=== PATIENT | female | born 1965 | race Caucasian/White ===

== ENCOUNTER 2017-08-26 23:08 | Observation (INO) | payer OTHER ==
[2017-08-27] MEDS: SODIUM CHLORIDE 1,000 ML IV SCH (00:36)
[2017-08-27 00:40] LABS: BASO # 0.1 # (0.1-1); BASO % 0.9 % (0-2.0); EOS # 0.2 # (0-4.5); LYMPH # 2.1 (8-40); MCH 31.3 pg (25.7-33.7); MCHC 33.9 g/dl (32.0-36.0); MEAN CELL VOLUME 92.4 fl (80-96); MEAN PLT VOLUME 9.6 fl (7.5-11.1); MONO # 0.4 # (3.8-10.2); NEUT % 50.9 % (42.8-82.8); PLATELET COUNT 216 K/MM3 (134-434); RDW 12.9 % (11.6-15.6); WHITE BLOOD COUNT 5.8 K/mm3 (4.0-10.0)
[2017-08-27 00:43] LABS: URINE APPEARANCE CLEAR; URINE BILIRUBIN NEGATIVE (NEGATIVE); URINE BLOOD NEGATIVE (NEGATIVE); URINE COLOR COLORLESS; URINE GLUCOSE (UA) NEGATIVE (NEGATIVE); URINE KETONE NEGATIVE (NEGATIVE); URINE LEUK ESTERASE NEGATIVE (NEGATIVE); URINE NITRITE NEGATIVE (NEGATIVE); URINE PROTEIN NEGATIVE (NEGATIVE); URINE UROBILINOGEN NEGATIVE mg/dL (0.2-1.0)
--- NOTE | 2017-08-27 00:44 | PDOC ---
History of Present Illness <Bita Mtzian - Last Filed: 08/27/17 02:08> - History of Present Illness Initial Comments: 08/27/17 00:39 52 F with no PMH presents to ER with R side numbness x 2 days, as well as fall today. Pt states that she awoke on Sunday with numbness to her R arm, R leg, and R face. Denies any weakness. Denies headache. Denies dizziness. She did not think anything of it at the time because she thought it was a pinched nerve. However, today pt states that she tripped and fell because her R side was numb. She reports falling and hitting her head on the stairwell. Denies LOC. Denies any neck pain. Denies any new numbness or weakness after the fall. Was able to get up and ambulate immediately afterwards. Pt denies CP/SOB. Denies F/C. Denies N/V/D. Denies FH of stroke. Was former smoker for 30 years. Endorses occasional ETOH. No other illicits. <Willard Melo - Last Filed: 08/27/17 04:15> - General Chief Complaint: Injury Stated Complaint: FALL Time Seen by Provider: 08/26/17 23:57 NIH Stroke Scale - Last Known Well Date/Time & Onset Date Last Known Well: 08/24/17 Time Last Known Well: 22:00 - Initial Evaluation Level of consciousness: Alert Ask patient the month and their age: Answers both correctly Ask patient to open & close eyes; make fist and let go: Obeys both correctly Best gaze (horizontal eye movement): Normal Visual field testing: No visual field loss Facial paresis (Show teeth/raise eyebrows/close eyes tight): Normal symmetrical movement Motor Function: Left Arm: Normal Motor Function: Right Arm: Normal (extends arm 90 (or 45) degrees for 10 seconds without drift Motor Function: Left Leg: Normal (extends leg 30 degrees for 5 seconds without drift) Motor Function: Right Leg: Normal (extends leg 30 degrees for 5 seconds without drift) Limb Ataxia: No ataxia Sensory(Use pinprick test arms,legs,trunk,face/side to side): Mild to moderate decrease in sensation Best language (Describe picture, name items, read sentences): No Aphasia Dysarthria (read several words): Normal articulation Extinction and Inattention: No abnormality - Total Score NIH Stroke Scale Score: 1 <Willard Melo - Last Filed: 08/27/17 04:15> Past History <Stefan Mtz - Last Filed: 08/27/17 02:08> - Suicide/Smoking/Psychosocial Hx Smoking History: Never smoked Have you smoked in the past 12 months: No Information on smoking cessation initiated: No Hx Alcohol Use: No Drug/Substance Use Hx: No <Willard Melo - Last Filed: 08/27/17 04:15> - Past Medical History Allergies/Adverse Reactions: Allergies Allergy/AdvReac Type Severity Reaction Status Date / Time No Known Allergies Allergy Verified 08/26/17 23:52 Home Medications: Ambulatory Orders NK [No Known Home Medication] 08/26/17 Review of Systems - Review of Systems Comments:: 08/27/17 00:41 "GENERAL/CONSTITUTIONAL: No fever or chills. No weakness. HEAD, EYES, EARS, NOSE AND THROAT: +head lac, No change in vision. No ear pain or discharge. No sore throat. CARDIOVASCULAR: No chest pain or shortness of breath. RESPIRATORY: No cough, wheezing, or hemoptysis. GASTROINTESTINAL: No nausea, vomiting, diarrhea or constipation. GENITOURINARY: No dysuria, frequency, or change in urination. MUSCULOSKELETAL: No joint or muscle swelling or pain. No neck or back pain. SKIN: No rash NEUROLOGIC: + R side numbness, No headache, vertigo, loss of consciousness, or change in strength ENDOCRINE: No increased thirst. No abnormal weight change. HEMATOLOGIC/LYMPHATIC: No anemia, easy bleeding, or history of blood clots. ALLERGIC/IMMUNOLOGIC: No hives or skin allergy. " <Willard Melo - Last Filed: 08/27/17 04:15> *Physical Exam - Vital Signs Last Vital Signs Temp Pulse Resp BP Pulse Ox 98.6 F 107 H 19 171/99 98 08/26/17 23:49 08/26/17 23:49 08/26/17 23:49 08/26/17 23:49 08/26/17 23:49 <Stefan Mtz - Last Filed: 08/27/17 02:08> - Vital Signs Last Vital Signs Temp Pulse Resp BP Pulse Ox 98.6 F 107 H 19 171/99 98 08/26/17 23:49 08/26/17 23:49 08/26/17 23:49 08/26/17 23:49 08/26/17 23:49 - Physical Exam Comments: 08/27/17 00:42 "GENERAL: Awake, alert, and fully oriented, in no acute distress HEAD: 2cm shallow occipital lac EYES: PERRLA, EOMI, sclera anicteric, conjunctiva clear ENT: Auricles normal inspection, hearing grossly normal, nares patent, oropharynx clear without exudates. Moist mucosa NECK: Nontender, no stepoffs, Normal ROM, supple, no lymphadenopathy, JVD, or masses LUNGS: Breath sounds equal, clear to auscultation bilaterally. No wheezes, and no crackles HEART: Regular rate and rhythm, normal S1 and S2, no murmurs, rubs or gallops ABDOMEN: Soft, nontender, normoactive bowel sounds. No guarding, no rebound. No masses EXTREMITIES: Normal range of motion, no edema. No clubbing or cyanosis. No cords, erythema, or tenderness NEUROLOGICAL: Diminished sensation to R face, R arm, R leg, Cranial nerves II through XII intact. 5/5 strength in all extremities, Normal speech, normal gait SKIN: Warm, Dry, normal turgor, no rashes or lesions noted. " <,Willard - Last Filed: 08/27/17 04:15> Procedures - Laceration/Wound Repair Posterior Head Wound Length: to 2.5 cm Wound Explored: clean Wound's Depth, Shape: superficial, linear Irrigated w/ Saline: Yes Anesthesia: 1% Lidocaine Suture Size/Type: 3:0 Number of Sutures: 2 <,Willard - Last Filed: 08/27/17 04:15> Heart Score/ECG Review - ECG Impressions Comment:: 08/27/17 01:34 NSR, no JANEEN/STDs, TWI in leads inferolateral leads (II, aVF, I, aVL, V4-V6), axis wnl, QTc 479 <,Willard - Last Filed: 08/27/17 04:15> ED Treatment Course - LABORATORY CBC & Chemistry Diagram: 08/27/17 00:30 08/27/17 00:30 - ADDITIONAL ORDERS Additional order review: Laboratory Results 08/27/17 08/27/17 08/27/17 00:30 00:30 00:30 PT with INR INR Sodium 142 Potassium 3.8 Chloride 108 H Carbon Dioxide 23 Anion Gap 11 BUN 18 Creatinine 0.9 Creat Clearance w eGFR > 60 Random Glucose 195 H Calcium 8.8 Total Bilirubin 0.2 AST 26 ALT 38 Alkaline Phosphatase 88 Creatine Kinase 186 Creatine Kinase Index 1.5 CK-MB (CK-2) 2.856 Troponin I < 0.02 Total Protein 7.6 Albumin 4.1 Triglycerides 297 H Cholesterol 308 H Total LDL Cholesterol 165 H HDL Cholesterol 84 Serum , Qual Negative Urine Color Urine Appearance Urine pH Ur Specific [place] Urine Protein Urine Glucose (UA) Urine Ketones Urine Blood Urine Nitrite Urine Bilirubin Urine Urobilinogen Blood Type O POSITIVE Antibody Screen Negative 08/27/17 08/27/17 00:30 00:30 PT with INR 10.70 INR 0.95 Sodium Potassium Chloride Carbon Dioxide Anion Gap BUN Creatinine Creat Clearance w eGFR Random Glucose Calcium Total Bilirubin AST ALT Alkaline Phosphatase Creatine Kinase Creatine Kinase Index CK-MB (CK-2) Troponin I Total Protein Albumin Triglycerides Cholesterol Total LDL Cholesterol HDL Cholesterol Serum , Qual Urine Color Colorless Urine Appearance Clear Urine pH 5.0 Ur Specific [place] 1.001 Urine Protein Negative Urine Glucose (UA) Negative Urine Ketones Negative Urine Blood Negative Urine Nitrite Negative Urine Bilirubin Negative Urine Urobilinogen Negative Blood Type Antibody Screen 08/27/17 00:30 RBC 4.50 MCV 92.4 MCHC 33.9 RDW 12.9 MPV 9.6 Neutrophils % 50.9 Lymphocytes % 36.6 Monocytes % 7.6 Eosinophils % 4.0 Basophils % 0.9 - RADIOLOGY Radiograph Interpretation: 08/27/17 02:08 EXAM: CT HEAD without contrast HISTORY: Rule out CVA/TIA COMPARISON: None. FINDINGS: The ventricular system is midline and nondilated. The sulcal pattern is normal for the patient's age. Minimal small vessel ischemic changes are noted. There is no bleed, mass, extra-axial fluid collection or mass effect. No skull fracture or skull lesion is identified. The visualized paranasal sinuses and mastoid air cells are clear. IMPRESSION: No evidence of acute pathology Reported by Yunior Remy MD <Stefan Mtz - Last Filed: 08/27/17 02:08> - LABORATORY CBC & Chemistry Diagram: 08/27/17 00:30 08/27/17 00:30 - RADIOLOGY Radiology Studies Ordered: Category Date Time Status HEAD CT (STROKE) [CT] Stat CT Scan 08/27/17 00:12 Ordered <Willard Melo - Last Filed: 08/27/17 04:15> Medical Decision Making - Medical Decision Making 08/27/17 00:43 52 F with R side numbness x 2 days. Possible CVA, though pt with otherwise normal neuro exam. NIHSS 1. Pt well outside window for tPA at this time. Pt also fell today and has head lac. - CT head - Labs 08/27/17 02:11 CBC,CMP WBC 5.8 K/mm3 (4.0-10.0) 08/27/17 00:30 RBC 4.50 M/mm3 (3.60-5.2) 08/27/17 00:30 Hgb 14.1 GM/dL (10.7-15.3) 08/27/17 00:30 Hct 41.6 % (32.4-45.2) 08/27/17 00:30 MCV 92.4 fl (80-96) 08/27/17 00:30 MCH 31.3 pg (25.7-33.7) 08/27/17 00:30 MCHC 33.9 g/dl (32.0-36.0) 08/27/17 00:30 RDW 12.9 % (11.6-15.6) 08/27/17 00:30 Plt Count 216 K/MM3 (134-434) 08/27/17 00:30 MPV 9.6 fl (7.5-11.1) 08/27/17 00:30 Neutrophils % 50.9 % (42.8-82.8) 08/27/17 00:30 Lymphocytes % 36.6 % (8-40) 08/27/17 00:30 Monocytes % 7.6 % (3.8-10.2) 08/27/17 00:30 Eosinophils % 4.0 % (0-4.5) 08/27/17 00:30 Basophils % 0.9 % (0-2.0) 08/27/17 00:30 Sodium 142 mmol/L (136-145) 08/27/17 00:30 Potassium 3.8 mmol/L (3.5-5.1) 08/27/17 00:30 Chloride 108 mmol/L (98-107) H 08/27/17 00:30 Carbon Dioxide 23 mmol/L (21-32) 08/27/17 00:30 Anion Gap 11 (8-16) 08/27/17 00:30 BUN 18 mg/dL (7-18) 08/27/17 00:30 Creatinine 0.9 mg/dL (0.55-1.02) 08/27/17 00:30 Creat Clearance w eGFR > 60 (>60) 08/27/17 00:30 Random Glucose 195 mg/dL (74-106) H 08/27/17 00:30 Calcium 8.8 mg/dL (8.5-10.1) 08/27/17 00:30 Total Bilirubin 0.2 mg/dL (0.2-1.0) 08/27/17 00:30 AST 26 U/L (15-37) 08/27/17 00:30 ALT 38 U/L (12-78) 08/27/17 00:30 Alkaline Phosphatase 88 U/L (45-117) 08/27/17 00:30 Creatine Kinase 186 IU/L (26-192) 08/27/17 00:30 Creatine Kinase Index 1.5 % (0.0-5.0) 08/27/17 00:30 CK-MB (CK-2) 2.856 ng/mL (0.5-3.6) 08/27/17 00:30 Troponin I < 0.02 ng/ml (0.00-0.05) 08/27/17 00:30 Total Protein 7.6 g/dl (6.4-8.2) 08/27/17 00:30 Albumin 4.1 g/dl (3.4-5.0) 08/27/17 00:30 Triglycerides 297 mg/dL (35-160) H 08/27/17 00:30 Cholesterol 308 mg/dL (50-200) H 08/27/17 00:30 Total LDL Cholesterol 165 mg/dL (5-100) H 08/27/17 00:30 HDL Cholesterol 84 mg/dl (29-89) 08/27/17 00:30 Serum , Qual Negative 08/27/17 00:30 CTH negative for acute bleed Labs wnl. Pt with inferolateral TWIs on EKG but negative trop. Pt likely has undiagnosed cardiovascular disease. Given symptoms of R side numbness, will need work up for stroke. 08/27/17 04:[address] Marie, tele obs. <Willard Melo - Last Filed: 08/27/17 04:15> *DC/Admit/Observation/Transfer - Attestations Scribe Attestion: 08/27/17 02:08 Documentation prepared by Stefan Mtz, acting as director medical economics for Willard Melo MD. <Stefan Mtz - Last Filed: 08/27/17 02:08> - Discharge Dispostion Admit: Yes - Attestations Physician Attestion: 08/27/17 04:15 I, Dr. Willard Melo MD, attest that this document has been prepared under my direction and personally reviewed by me in its entirety. I further attest, that it accurately reflects all work, treatment, procedures and medical decision -making performed by me. <Willard Melo - Last Filed: 08/27/17 04:15> Diagnosis at time of Disposition: Numbness on right side - Discharge Dispostion Condition at time of disposition: Fair - Referrals Referrals: Cee Hughes MD [Primary Care Provider] - - Patient Instructions - Post Discharge Activity
[2017-08-27] MEDS ORDERED: DIPHTH,PERTUSS(ACELL),TET 0.5 ML DISP.SYRIN IM ONE (00:46)
[2017-08-27 01:02] LABS: INR 0.95 (0.82-1.09); PROTHROMBIN TIME (PATIENT) 10.7 SEC (9.98-11.88)
[2017-08-27 01:13] LABS: ALBUMIN 4.1 g/dl (3.4-5.0); ANION GAP 11 (8-16); CALCIUM 8.8 mg/dL (8.5-10.1); CHOLESTEROL 308 mg/dL (50-200); CO2 23 mmol/L (21-32); CREATININE 0.9 mg/dL (0.55-1.02); GLUCOSE,RANDOM 195 mg/dL (74-106); SGOT/AST 26 U/L (15-37); SGPT/ALT 38 U/L (12-78)
[2017-08-27 01:18] LABS: ALK PHOS 88 U/L (45-117); BILIRUBIN,TOTAL 0.2 mg/dL (0.2-1.0); CPK 186 IU/L (26-192); TOT PROT 7.6 g/dl (6.4-8.2); TROPONIN I < 0.02 ng/ml (0.00-0.05)
--- NOTE | 2017-08-27 04:21 | HP ---
CHIEF COMPLAINT: R. Sided Numbness PCP:Dr. Tai HISTORY OF PRESENT ILLNESS: 52 F with no pmhx who presents with right sided numbness. Notes that she had awoken Sunday with Right arm/leg numbness. She states she did not do anything about it because she thought she might have "pinched a nerve", Notes she tripped and fell tonight and hit the back of her head. Did not have any preceding chest pain, pressurem shortness of breath, dizziness or lightheadedness. No N/V/D. No recent fevers or chills. No loss of bowel or bladder function, and no tongue biting. Does note pain were she hit her head, but denies any visual changes. ER course was notable for: (1) CT HEAD- Negative for acute Pathology (2) EKG with TWI in inferolateral leads (3) Posterior head wond repair Recent Travel: NO PAST MEDICAL HISTORY: None PAST SURGICAL HISTORY: Social History: Smoking:No Alcohol: Social Drugs: N/A Family History: Cancer Allergies No Known Allergies Allergy (Verified 08/26/17 23:52) HOME MEDICATIONS: Home Medications Medication Instructions Recorded NK [No Known Home Medication] 08/26/17 REVIEW OF SYSTEMS CONSTITUTIONAL: Absent: fever, chills, diaphoresis, generalized weakness, malaise, loss of appetite, weight change HEENT: Absent: rhinorrhea, nasal congestion, throat pain, throat swelling, difficulty swallowing, mouth swelling, ear pain, eye pain, visual changes CARDIOVASCULAR: Absent: chest pain, syncope, palpitations, irregular heart rate, lightheadedness , peripheral edema RESPIRATORY: Absent: cough, shortness of breath, dyspnea with exertion, orthopnea, wheezing, stridor, hemoptysis GASTROINTESTINAL: Absent: abdominal pain, abdominal distension, nausea, vomiting, diarrhea, constipation, melena, hematochezia GENITOURINARY: Absent: dysuria, frequency, urgency, hesitancy, hematuria, flank pain, genital pain MUSCULOSKELETAL: Absent: myalgia, arthralgia, joint swelling, back pain, neck pain SKIN: Absent: rash, itching, pallor HEMATOLOGIC/IMMUNOLOGIC: Absent: easy bleeding, easy bruising, lymphadenopathy, frequent infections ENDOCRINE: Absent: unexplained weight gain, unexplained weight loss, heat intolerance, cold intolerance NEUROLOGIC: Absent: headache, focal weakness or paresthesias, dizziness, unsteady gait, seizure, mental status changes, bladder or bowel incontinence PSYCHIATRIC: Absent: anxiety, depression, suicidal or homicidal ideation, hallucinations. PHYSICAL EXAMINATION Vital Signs - 24 hr 08/26/17 23:49 Temperature 98.6 F Pulse Rate 107 H Respiratory 19 Rate Blood Pressure 171/99 O2 Sat by Pulse 98 Oximetry (%) GENERAL: Awake, alert, and fully oriented, in no acute distress. HEAD: Normal with no signs of trauma. EYES: Pupils equal, round and reactive to light, extraocular movements intact, sclera anicteric, conjunctiva clear. No lid lag. EARS, NOSE, THROAT: Ears normal, nares patent, oropharynx clear without exudates. Moist mucous membranes. NECK: Normal range of motion, supple without lymphadenopathy, JVD, or masses. LUNGS: Breath sounds equal, clear to auscultation bilaterally. No wheezes, and no crackles. No accessory muscle use. HEART: Regular rate and rhythm, normal S1 and S2 without murmur, rub or gallop. ABDOMEN: Soft, nontender, not distended, normoactive bowel sounds, no guarding, no rebound, no masses. No hepatomegaly or splenomegaly. MUSCULOSKELETAL: Normal range of motion at all joints. No bony deformities or tenderness. No CVA tenderness. UPPER EXTREMITIES: 2+ pulses, warm, well-perfused. No cyanosis. No clubbing. No peripheral edema. LOWER EXTREMITIES: 2+ pulses, warm, well-perfused. No calf tenderness. No peripheral edema. NEUROLOGICAL: Cranial nerves II-XII intact. Normal speech. PSYCHIATRIC: Cooperative. Good eye contact. Appropriate mood and affect. SKIN: Warm, dry, normal turgor, no rashes or lesions noted, normal capillary refill. Laboratory Results - last 24 hr 08/27/17 08/27/17 08/27/17 00:30 00:30 00:30 WBC 5.8 RBC 4.50 Hgb 14.1 Hct 41.6 MCV 92.4 MCH 31.3 MCHC 33.9 RDW 12.9 Plt Count 216 MPV 9.6 Neutrophils % 50.9 Lymphocytes % 36.6 Monocytes % 7.6 Eosinophils % 4.0 Basophils % 0.9 PT with INR 10.70 INR 0.95 Sodium Potassium Chloride Carbon Dioxide Anion Gap BUN Creatinine Creat Clearance w eGFR Random Glucose Calcium Total Bilirubin AST ALT Alkaline Phosphatase Creatine Kinase Creatine Kinase Index CK-MB (CK-2) Troponin I Total Protein Albumin Triglycerides Cholesterol Total LDL Cholesterol HDL Cholesterol Serum , Qual Urine Color Colorless Urine Appearance Clear Urine pH 5.0 Ur Specific [place] 1.001 Urine Protein Negative Urine Glucose (UA) Negative Urine Ketones Negative Urine Blood Negative Urine Nitrite Negative Urine Bilirubin Negative Urine Urobilinogen Negative Blood Type Antibody Screen 08/27/17 08/27/17 08/27/17 00:30 00:30 00:30 WBC RBC Hgb Hct MCV MCH MCHC RDW Plt Count MPV Neutrophils % Lymphocytes % Monocytes % Eosinophils % Basophils % PT with INR INR Sodium 142 Potassium 3.8 Chloride 108 H Carbon Dioxide 23 Anion Gap 11 BUN 18 Creatinine 0.9 Creat Clearance w eGFR > 60 Random Glucose 195 H Calcium 8.8 Total Bilirubin 0.2 AST 26 ALT 38 Alkaline Phosphatase 88 Creatine Kinase 186 Creatine Kinase Index 1.5 CK-MB (CK-2) 2.856 Troponin I < 0.02 Total Protein 7.6 Albumin 4.1 Triglycerides 297 H Cholesterol 308 H Total LDL Cholesterol 165 H HDL Cholesterol 84 Serum , Qual Negative Urine Color Urine Appearance Urine pH Ur Specific [place] Urine Protein Urine Glucose (UA) Urine Ketones Urine Blood Urine Nitrite Urine Bilirubin Urine Urobilinogen Blood Type O POSITIVE Antibody Screen Negative NIHSS:1 CXR- PENDING UA- PENDING CT HEAD- NO Acute Pathology EKG: NSR, no JANEEN/STDs, TWI in leads inferolateral leads (II, aVF, I, aVL, V4-V6) , axis wnl, QTc 479 ASSESSMENT/PLAN: 52 F with no pmhx who presents with right sided numbness 1.) Numbness R. Side- RO CVA/TIA - ASA - STATIN - Lipid panel/A1c - trend trop/ekg - MRI BRAIN WO Con - TSH/B12/Folate - Neuro consult - ECHO/Carotid US 2.) S?P Mechanical Fall - monirtor 3.) Dvt Ppx - SCD Visit type - Emergency Visit Emergency Visit: Yes ED Registration Date: 08/27/17 Care time: The patient presented to the Emergency Department on the above date and was hospitalized for further evaluation of their emergent condition. - New Patient This patient is new to me today: Yes Date on this admission: 08/27/17 - Critical Care Critical Care patient: No
[2017-08-27] MEDS ORDERED: METOPROLOL TARTRATE 25 MG TABLET (FP) PO ONE (04:46)
[2017-08-27] MEDS ORDERED: ATORVASTATIN CA 80 MG TABLET (FP) PO ONE (04:46)
[2017-08-27] MEDS ORDERED: ASPIRIN 325 MG ENTERIC COATED TABLET (FP) PO SCH (05:00)
[2017-08-27 06:11] LABS: MCH 31.3 pg (25.7-33.7); MCHC 34.1 g/dl (32.0-36.0); MEAN CELL VOLUME 91.9 fl (80-96); MEAN PLT VOLUME 9.9 fl (7.5-11.1); PLATELET COUNT 218 K/MM3 (134-434); RDW 12.9 % (11.6-15.6); WHITE BLOOD COUNT 5.6 K/mm3 (4.0-10.0)
[2017-08-27] MEDS ORDERED: ATORVASTATIN CA 80 MG TABLET (FP) ONE ×2 (06:11→22:01)
[2017-08-27] MEDS ORDERED: ASPIRIN 325 MG ENTERIC COATED TABLET (FP) ONE (06:12)
[2017-08-27] MEDS ORDERED: METOPROLOL TARTRATE 25 MG TABLET (FP) ONE (06:12)
[2017-08-27 07:00] LABS: TROPONIN I < 0.02 ng/ml (0.00-0.05)
[2017-08-27 07:51] LABS: THYROID STIMULATING HORMONE 2.06 uIU/ml (0.358-3.74)
[2017-08-27] MEDS ORDERED: ASPIRIN COATED 81 MG TABLET.EC PO SCH (10:00)
[2017-08-27 11:42] LABS: URINE LEUK ESTERASE Negative (NEGATIVE)
--- NOTE | 2017-08-27 13:21 | CON.NEURO ---
Consult - Alcohol/Substance Use Hx Alcohol Use: No - Smoking History Smoking history: Never smoked Have you smoked in the past 12 months: No Home Medications - Allergies Allergies/Adverse Reactions: Allergies Allergy/AdvReac Type Severity Reaction Status Date / Time No Known Allergies Allergy Verified 08/26/17 23:52 - Home Medications Home Medications: Ambulatory Orders NK [No Known Home Medication] 08/26/17 Physical Exam-Neuro Vital Signs: Vital Signs Temperature 98.4 F 08/27/17 01:39 Pulse Rate 86 08/27/17 06:24 Respiratory Rate 18 08/27/17 06:24 Blood Pressure 143/92 08/27/17 06:24 O2 Sat by Pulse Oximetry (%) 98 08/27/17 01:39 Labs: CBC, BMP 08/27/17 05:41 08/27/17 00:30 INR, PTT INR 0.95 (0.82-1.09) 08/27/17 00:30 Assessment/Plan CC RIGHT SIDED numbness HPI 52 year old female history of right sided numbness, started sunday ( three days ago). She has symptoms of right arm, leg and face tingling and numbnes.s Patient denies any headhace or any similar symptoms in back. She had ct head don eand it was unremarkable. She denies any history of dm, htn or hyperlipidemi. Patient had mri done report is pending. NKDA quit one month ago FH,ROS,SH reviewed in chart Neurological Examination Alert oriented x 3, CN all intact, motor 5/5 all intact sensation there is sensory dysthesia on right side reflex are symmetrical ct head is normal mri report is pending Assessment- Right sided numbness for three days, exam is normal except sensory dysthesia on right side. Plan-- follow up on mri report - stroke work up including carotid ultrasound and echo - continue aspirin and statin - once mri of brain is normal, unlikley to be stroke , no furhter stroke work up would be needed - would follow patient with you Thank you so much Mark Calderon MD
--- NOTE | 2017-08-27 15:25 | EKG ---
Test Reason : Blood Pressure : / mmHG Vent. Rate : 089 BPM Atrial Rate : 089 BPM P-R Int : 148 ms QRS Dur : 068 ms QT Int : 394 ms P-R-T Axes : 042 036 194 degrees QTc Int : 479 ms NORMAL SINUS RHYTHM PROLONGED QT ABNORMAL ECG NO PREVIOUS ECGS AVAILABLE Confirmed by SARMAD CRUZ MD ([id number]) on 08/27/2017 3:24:49 PM Referred By: Confirmed By:SARMAD CRUZ MD
[2017-08-27 17:47] LABS: THYROID STIMULATING HORMONE 1.21 uIU/ml (0.358-3.74); TROPONIN I < 0.02 ng/ml (0.00-0.05)
[2017-08-27 18:56] VITALS: BMI 30.7
[2017-08-27] MEDS ORDERED: amLODIPine BESYLATE 5 MG TABLET (FP) ONE (18:59)
[2017-08-27] MEDS ORDERED: amLODIPine BESYLATE 5 MG TABLET (FP) PO ONE (19:45)
[2017-08-27] MEDS ORDERED: ATORVASTATIN CA 80 MG TABLET (FP) PO SCH (22:00)
[2017-08-28] MEDS: SODIUM CHLORIDE 1,000 ML IV SCH (00:14)
[2017-08-28 06:51] LABS: MCH 31.3 pg (25.7-33.7); MEAN CELL VOLUME 92.1 fl (80-96); MEAN PLT VOLUME 10.2 fl (7.5-11.1); PLATELET COUNT 215 K/MM3 (134-434); RDW 12.9 % (11.6-15.6)
[2017-08-28 07:21] LABS: ALBUMIN 3.7 g/dl (3.4-5.0); ANION GAP 12 (8-16); CALCIUM 9.2 mg/dL (8.5-10.1); CO2 23 mmol/L (21-32); GLUCOSE,RANDOM 122 mg/dL (74-106)
[2017-08-28 07:23] LABS: ALK PHOS 97 U/L (45-117); BILIRUBIN,TOTAL 1.2 mg/dL (0.2-1.0); CREATININE 0.9 mg/dL (0.55-1.02); SGOT/AST 17 U/L (15-37); SGPT/ALT 31 U/L (12-78); TOT PROT 7.1 g/dl (6.4-8.2)
--- NOTE | 2017-08-28 09:27 | PN ---
Progress Note (short form) - Note Progress Note: CC RIGHT SIDED numbness HPI 52 year old female history of right sided numbness, started mark anthony ( three days ago). She has symptoms of right arm, leg and face tingling and numbnes.s Patient denies any headhace or any similar symptoms in back. mri of brain showed there is acute brain stem infarct, carotid ultrasound is unremarkable She denies any history of dm, htn or hyperlipidemia. quit one month ago Neurological Examination Alert oriented x 3, CN all intact, motor 5/5 all intact sensation there is sensory dysthesia on right side reflex are symmetrical ct head is normal mri of brain acute stroke carotid ultrasound is normal Assessment- Right sided numbness for three days, Brain stem infarct. Risk factor , htn, hyperlipidemia and smoker Plan-- - continue aspirin and statin - speech, dvt and pt Life style modifications were discussed with patient Thank you so much Mark Calderon MD
[2017-08-28] MEDS ORDERED: ASPIRIN 81 MG CHEWABLE TABLETS PO SCH (10:00)
--- NOTE | 2017-08-28 13:21 | CONSULT ---
Admitting History and Physical - Primary Care Physician PCP: Cee Hughes - Admission History of Present Illness: 52 year old female history of right sided numbness.Pt reported falling last week , slipping on ice, and hitting her head. CT head (-), MRI acute brain stem infarct, carotid ultrasound (-) History Source: Patient, Medical Record Limitations to Obtaining History: No Limitations - Smoking History Smoking history: Never smoked Have you smoked in the past 12 months: No - Alcohol/Substance Use Hx Alcohol Use: No - Social History Occupation: book keeper History - Admission Reason For Visit: NUMBNESS ON RIGHT SIDE - Diagnostics X-ray: Report Reviewed CT Scan: Report Reviewed MRI: Report Reviewed (acute brain stem infarct) - General Mental Status: Alert and Oriented, Awake and Alert, Able to Follow Commands Attention: Intact Ability to Follow Directions: Excellent Head/Neck Control: WFL - Hearing Hearing: Normal Speech Evaluation - Communication Primary Language: GRE[place] Communication: Yes: Within Normal Limits Oral Expression Ability: Yes: No Impairment - Speech Production Able to Make Needs Known: Yes: WNL Intelligibility: Yes: WNL - Speech Characteristics Voice Loudness: Normal Voice Pitch: Yes: Normal Voice Phonatory-based Quality: Yes: Normal Speech Pattern: Normal Speech Clarity: < 100% Nasal Resonance: Normal Articulation: Yes: Precise Rate of Speech: Intact - Language/Auditory Comprehension Follows: Yes: 2 Stage Simple Commands Observation: Able to respond to yes/no queries: Yes, Yes/No Confusion: No, Comprehends Conversational Speech: Yes - Language/Verbal Expression Able to Respond to Simple Queries: Yes: WNL Able to Communicate Wants and Needs: Yes: WNL Functional Communication Status: Yes: WNL - Memory/Perception intermodal dispatcher Memory: Yes: WNL Short Term Memory: Yes: WNL - Swallow Evaluation/Bedside Assessment Current Nutritional Intake: NPO Oral Secretions: Yes: WFL Dentition: Yes: Missing Teeth Facial Symmetry at Rest: Symmetrical Facial Symmetry on Retraction: Symmetrical Facial Movement: Controlled Sensation: Normal Against Resistance Opening: Normal Against Resistance Closing: Normal Pucker Lips: Normal Smile: Normal Lingual Movement: Normal, Symmetric (bruise/healing right side of tongue tip.) Lingual Speed of Movement: Normal Lingual Movement Strgth Against Opposition: Normal Lingual Movement Characteristics: Normal Velopharyngeal Movement: Normal Laryngeal Elevation: WFL Laryngeal Movement: Able to Palpate Rate of Intake: WFL Bolus Size: WFL Labial Seal: WFL Chewing: WFL Oral Prep Time: WFL A-P Transit: WFL Timing of Swallow: WFL Coughing/Throat Clear: No Change in Voice: No Recommendations - Speech Evaluation, Impression/Plan Impression: Speech production, language, swallowing, cognition all intact. - Dysphagia Impressions/Plan Swallowing Skills: WFL Dysphagia Impressions: No Impairment *Silent aspiration: cannot be R/O at bedside Recommendations: Modified Barium Swallow (if cough, congestion, fever) - Recommendations Diet Consistency: Regular Medication Administration: Whole with water Liquids: Thin Liquids
--- NOTE | 2017-08-28 16:00 | DS ---
Physical Examination Vital Signs: Vital Signs Temperature 97.7 F 08/28/17 06:00 Pulse Rate 85 08/28/17 15:17 Respiratory Rate 16 08/28/17 15:17 Blood Pressure 192/111 08/28/17 15:17 O2 Sat by Pulse Oximetry (%) 97 08/28/17 15:17 Findings/Remarks: SEEN AND EXAMINED FEELS GOOD Constitutional: Yes: No Distress Eyes: Yes: WNL HENT: Yes: WNL Neck: Yes: WNL Cardiovascular: Yes: WNL Respiratory: Yes: WNL Gastrointestinal: Yes: WNL Renal/: Yes: WNL Musculoskeletal: Yes: WNL Extremities: Yes: WNL Edema: No Peripheral Pulses WNL: Yes Integumentary: Yes: WNL Wound/Incision: Yes: Clean/Dry Neurological: Yes: WNL ...Motor Strength: WNL Psychiatric: Yes: WNL Labs: CBC, BMP 08/28/17 06:36 08/28/17 06:36 Discharge Summary Reason For Visit: NUMBNESS ON RIGHT SIDE Current Active Problems Numbness on right side (Acute) Procedures: Principal: MRI BRAIN Hospital Course: PATIENT SEEN AND EXAMINED NOTES AND MRI REVIEWED WILL DC HOME F/U OUTPATIENT PONTINE STROKE Condition: Fair - Instructions Diet, Activity, Other Instructions: LOW FAT LOW SODIUM SEE DR HUGHES TOMORROW 656 [address] 12PM Referrals: Cee Hughes MD [Primary Care Provider] - Disposition: HOME - Home Medications Comprehensive Discharge Medication List: Ambulatory Orders Aspirin [ASA -] 81 mg PO DAILY #30 tab.chew 08/28/17 Atorvastatin Ca [Lipitor] 80 mg PO HS #30 tablet 08/28/17
[2017-08-28] MEDS ORDERED: amLODIPine BESYLATE 5 MG TABLET (FP) PO SCH (16:30)
[2017-08-28 16:41] VITALS: BP 187/106; PULSE 82; TEMP 98.3
--- NOTE | 2017-08-28 23:07 | PN ---
Progress Note (short form) - Note Progress Note: bp elevated 186/112 patient started on amlodipine, keep sbp 180mmhg no cp no sob no headache monitor overnight bp
[2017-08-29] MEDS ORDERED: LOSARTAN 50MG/HCTZ 12.5MG 1 TAB (FP) PO SCH (10:00)
== END 2017-08-28 16:42 | disposition home or self-care (01) ==
LOC: SUPCPDRO 23:08 → JER 23:08 → INTOOBSV 08-27 04:15 → JERBED 08-27 04:15
PROVIDERS: ADMIT Family Medicine; ATTEND Family Medicine
PROC: 3E0234Z Introduction of Serum, Toxoid and Vaccine into Muscle, Percutaneous Approach (ICD-10-PCS; principal; 2017-08-27)
DX: G46.3 Brain stem stroke syndrome (principal); R20.0 Anesthesia of skin
CPT/HCPCS: 36415; 70450-TC; 70551-TC; 71020-TC; 73090-TC-RT; 80053; 81003; 82465; 82550; 82553; 82607; 82746; 83036; 83718; 83721; 84443; 84478; 84484; 84703; 85025; 85027; 85610; 85651; 86850; 86900; 86901; 87086; 90471; 90715; 93005; 93010; 93306-TC; 93880-TC; 99284-25; G0378

== ENCOUNTER 2021-02-23 05:04 | Day surgery (SDC) | payer OTHER ==
[2021-02-22 16:10] VITALS: BMI 26.9
[~2021-02-23 05:04] MED LIST: ACETAMINOPHEN 325 MG TABLET (FP) PO PRN; CYCLOPENTOLATE HCL 1% OPHTH SOLN 2 ML BOTTLE OP SCH; KETOROLAC TROMETHAMINE 0.5% EYE DROP 1 DROP DROPS OP SCH; OFLOXACIN 0.3% OPHTHALMIC SOLUTION 5 ML BOTTLE OP SCH; PHENYLEPHRINE 2.5% OPHTH SOLN 15 ML BOTTLE OP SCH; TROPICAMIDE 1% OPHTH SOLN 15 ML BOTTLE OP SCH
[2021-02-23] MEDS ORDERED: VANCOMYCIN 500 MG VIAL (RESTRICTED TO ID ONLY) ONE (07:12)
[2021-02-23] MEDS ORDERED: POVIDONE-IODINE 5% OPHTHALMIC PREP 30 ML SOLUTION ONE (07:12)
[2021-02-23] MEDS ORDERED: LIDOCAINE HCL/PF 1% SDV 5ML VIAL ONE (07:12)
[2021-02-23] MEDS ORDERED: TETRACAINE 0.5% OPHTH SOLN 2 ML BOTTLE ONE (07:12)
[2021-02-23] MEDS ORDERED: EPINEPHrine/PF 1 MG/1 ML (1:1,000) AMPULE ONE (07:12)
[2021-02-23] MEDS ORDERED: BSS (NA/CA/MG/K) BALANCED SALT SOLUTION OPHTH SOLN 15 ML BOTTLE ONE (07:12)
[2021-02-23] MEDS ORDERED: TRYPAN BLUE 0.5 ML DISP.SYRIN ONE (07:12)
[2021-02-23] MEDS ORDERED: TETRACAINE 0.5% OPHTH SOLN 2 ML BOTTLE OS ONE ×2 (07:49→10:50)
[2021-02-23] MEDS ORDERED: LIDOCAINE HCL 1% PRESERVATIVE FREE - 30ML VIAL IO ONE ×2 (07:50→10:58)
[2021-02-23] MEDS ORDERED: BSS (NA/CA/MG/K) BALANCED SALT SOLUTION OPHTH SOLN 15 ML BOTTLE IO ONE ×2 (07:50→11:01)
[2021-02-23] MEDS ORDERED: POVIDONE-IODINE 5% OPHTHALMIC PREP 30 ML SOLUTION OS ONE ×2 (07:50→10:51)
[2021-02-23] MEDS ORDERED: CHONDROITIN SU A/HYALUR SOD 1 KIT IO ONE ×2 (07:51→11:03)
[2021-02-23] MEDS ORDERED: TRYPAN BLUE 0.5 ML DISP.SYRIN IO ONE ×2 (07:52→11:01)
[2021-02-23] MEDS ORDERED: PHENYLEPHRINE/KETOROLAC 4 ML VIAL IO ONE ×2 (07:52→11:06)
[2021-02-23] MEDS ORDERED: CYCLOPENTOLATE HCL 1% OPHTH SOLN 2 ML BOTTLE OS ONE ×3 (09:10→09:20)
[2021-02-23] MEDS ORDERED: KETOROLAC TROMETHAMINE 0.5% EYE DROP 1 DROP DROPS OS ONE ×3 (09:10→09:20)
[2021-02-23] MEDS ORDERED: OFLOXACIN 0.3% OPHTHALMIC SOLUTION 5 ML BOTTLE OS ONE ×3 (09:10→09:20)
[2021-02-23] MEDS ORDERED: TROPICAMIDE 1% OPHTH SOLN 15 ML BOTTLE OS ONE ×3 (09:10→09:20)
[2021-02-23] MEDS ORDERED: PHENYLEPHRINE 2.5% OPHTH SOLN 15 ML BOTTLE OS ONE ×3 (09:10→09:20)
[2021-02-23] MEDS ORDERED: KETOROLAC TROMETHAMINE 0.5% EYE DROP 1 DROP DROPS ONE (09:21)
[2021-02-23] MEDS ORDERED: TROPICAMIDE 1% OPHTH SOLN 15 ML BOTTLE ONE (09:21)
[2021-02-23] MEDS ORDERED: PHENYLEPHRINE 2.5% OPTHALMIC DROP BOTTLE ONE (09:21)
[2021-02-23] MEDS ORDERED: CYCLOPENTOLATE HCL 1% OPHTH SOLN 2 ML BOTTLE ONE (09:21)
[2021-02-23] MEDS ORDERED: OFLOXACIN 0.3% OPHTHALMIC SOLUTION 5 ML BOTTLE ONE (09:21)
[2021-02-23] MEDS ORDERED: MIDAZOLAM HCL 2 MG/2 ML SINGLE DOSE VIAL ONE (10:48)
[2021-02-23] MEDS ORDERED: PROPOFOL 20 ML ONE ×2 (11:04)
[2021-02-23] MEDS ORDERED: SUCCINYLCHOLINE CHLORIDE 200 MG/10 ML SYRINGE ONE (11:05)
[2021-02-23] MEDS ORDERED: EPHEDRINE SULFATE/0.9% NACL/PF 50 MG/10 ML SYRINGE NR ONE (11:05)
[2021-02-23 11:37] VITALS: TEMP 98.1
[2021-02-23 12:36] VITALS: BP 134/75; PULSE 68
== END 2021-02-23 12:30 | disposition home or self-care (01) ==
LOC: JASU-SURG 05:04
PROVIDERS: ATTEND Ophthalmology
PROC: 08RK3JZ Replacement of Left Lens with Synthetic Substitute, Percutaneous Approach (ICD-10-PCS; principal; 2021-02-23 11:00)
DX: H26.9 Unspecified cataract (principal)
CPT/HCPCS: 82962; J1097

== ENCOUNTER 2021-03-23 04:45 | Day surgery (SDC) | payer OTHER ==
[2021-03-21 10:44] VITALS: BMI 25.7
[2021-03-23] MEDS ORDERED: OFLOXACIN 0.3% OPHTHALMIC SOLUTION 5 ML BOTTLE ONE (06:09)
[2021-03-23] MEDS ORDERED: CYCLOPENTOLATE HCL 1% OPHTH SOLN 2 ML BOTTLE ONE (06:09)
[2021-03-23] MEDS ORDERED: KETOROLAC TROMETHAMINE 0.5% EYE DROP 1 DROP DROPS ONE (06:09)
[2021-03-23] MEDS ORDERED: TROPICAMIDE 1% OPHTH SOLN 15 ML BOTTLE ONE (06:09)
[2021-03-23] MEDS ORDERED: PHENYLEPHRINE 2.5% OPTHALMIC DROP BOTTLE ONE (06:09)
[2021-03-23] MEDS ORDERED: KETOROLAC TROMETHAMINE 0.5% EYE DROP 1 DROP DROPS OD ONE ×3 (07:00→07:20)
[2021-03-23] MEDS ORDERED: CYCLOPENTOLATE HCL 1% OPHTH SOLN 2 ML BOTTLE OD ONE ×3 (07:00→07:20)
[2021-03-23] MEDS ORDERED: TROPICAMIDE 1% OPHTH SOLN 15 ML BOTTLE OD ONE ×3 (07:00→07:20)
[2021-03-23] MEDS ORDERED: PHENYLEPHRINE 2.5% OPHTH SOLN 15 ML BOTTLE OD ONE ×3 (07:00→07:20)
[2021-03-23] MEDS ORDERED: OFLOXACIN 0.3% OPHTHALMIC SOLUTION 5 ML BOTTLE OD ONE ×3 (07:00→07:20)
[2021-03-23] MEDS ORDERED: PROPOFOL 20 ML ONE ×2 (07:09)
[2021-03-23] MEDS ORDERED: SUCCINYLCHOLINE CHLORIDE 200 MG/10 ML SYRINGE ONE (07:09)
[2021-03-23] MEDS ORDERED: LIDOCAINE HCL/PF 2% SDV 5ML VIAL ONE (07:10)
[2021-03-23] MEDS ORDERED: MIDAZOLAM HCL 2 MG/2 ML SINGLE DOSE VIAL ONE (07:10)
[2021-03-23] MEDS ORDERED: EPINEPHrine/PF 1 MG/1 ML (1:1,000) AMPULE ONE (07:22)
[2021-03-23] MEDS ORDERED: POVIDONE-IODINE 5% OPHTHALMIC PREP 30 ML SOLUTION ONE (07:23)
[2021-03-23] MEDS ORDERED: VANCOMYCIN 500 MG VIAL (RESTRICTED TO ID ONLY) ONE (07:23)
[2021-03-23] MEDS ORDERED: LIDOCAINE HCL/PF 1% SDV 5ML VIAL ONE (07:23)
[2021-03-23] MEDS ORDERED: TETRACAINE 0.5% OPHTH SOLN 2 ML BOTTLE ONE (07:23)
[2021-03-23] MEDS ORDERED: WATER FOR INJ,STERILE 10 ML ONE (07:23)
[2021-03-23] MEDS ORDERED: TRYPAN BLUE 0.5 ML DISP.SYRIN ONE (07:24)
[2021-03-23] MEDS ORDERED: TETRACAINE 0.5% OPHTH SOLN 2 ML BOTTLE OD ONE (08:10)
[2021-03-23] MEDS ORDERED: CHONDROITIN SU A/HYALUR SOD 1 KIT IO ONE (08:19)
[2021-03-23] MEDS ORDERED: LIDOCAINE HCL 1% PRESERVATIVE FREE - 30ML VIAL IO ONE (08:19)
[2021-03-23] MEDS ORDERED: TRYPAN BLUE 0.5 ML DISP.SYRIN IO ONE (08:20)
[2021-03-23] MEDS ORDERED: EPINEPHrine/PF 1 MG/1 ML (1:1,000) AMPULE SQ ONE (08:29)
[2021-03-23 09:05] VITALS: PULSE 70
[2021-03-23] MEDS ORDERED: ACETAMINOPHEN 325 MG TABLET (FP) ONE (09:16)
[2021-03-23] MEDS ORDERED: ACETAMINOPHEN 325 MG TABLET (FP) PO ONE (09:21)
[2021-03-23 13:50] VITALS: BP 113/73; TEMP 98.3
== END 2021-03-23 09:55 | disposition home or self-care (01) ==
LOC: JASU-SURG 04:45
PROVIDERS: ATTEND Ophthalmology
PROC: 08RJ3JZ Replacement of Right Lens with Synthetic Substitute, Percutaneous Approach (ICD-10-PCS; principal; 2021-03-23 08:00)
DX: H26.9 Unspecified cataract (principal)
CPT/HCPCS: 82962

== ENCOUNTER → 2021-07-21 | Day surgery (SDC) | payer OTHER | END | disposition home or self-care (01) | LOC: FMAMMOTONE 08:37 | PROVIDERS: ATTEND Nurse Practitioner Family | PROC: 0HBV3ZX Excision of Bilateral Breast, Percutaneous Approach, Diagnostic (ICD-10-PCS; principal; 2021-07-21) | DX: D05.92 Unspecified type of carcinoma in situ of left breast (principal); N60.31 Fibrosclerosis of right breast; N64.1 Fat necrosis of breast; N62 Hypertrophy of breast; N64.89 Other specified disorders of breast; R92.0 Mammographic microcalcification found on diagnostic imaging of breast | CPT/HCPCS: 19081; 76098-TC-FY; 87899; 88305-TC; 88342-TC; A4648 ==

== ENCOUNTER 2021-11-01 04:19 | Day surgery (SDC) | payer OTHER ==
[2021-10-27 12:17] VITALS: BMI 24.1
[~2021-11-01 04:19] MED LIST changes: -ACETAMINOPHEN 325 MG TABLET (FP) PO PRN; -CYCLOPENTOLATE HCL 1% OPHTH SOLN 2 ML BOTTLE OP SCH; -KETOROLAC TROMETHAMINE 0.5% EYE DROP 1 DROP DROPS OP SCH; +LIDOCAINE HCL 1%, 10 MG/ML (20ML VIAL) NR ONE; -OFLOXACIN 0.3% OPHTHALMIC SOLUTION 5 ML BOTTLE OP SCH; -PHENYLEPHRINE 2.5% OPHTH SOLN 15 ML BOTTLE OP SCH; -TROPICAMIDE 1% OPHTH SOLN 15 ML BOTTLE OP SCH
[2021-11-01] MEDS ORDERED: MIDAZOLAM HCL 2 MG/2 ML SINGLE DOSE VIAL ONE (11:52)
[2021-11-01] MEDS ORDERED: LIDOCAINE HCL 1%, 10 MG/ML (20ML VIAL) ONE (12:04)
[2021-11-01] MEDS ORDERED: ceFAZolin SODIUM 1 GM VIAL IVPB ONE (12:41)
[2021-11-01] MEDS ORDERED: PROPOFOL 20 ML ONE ×2 (12:41→13:17)
[2021-11-01] MEDS ORDERED: ceFAZolin SODIUM 1 GM VIAL ONE (12:46)
[2021-11-01] MEDS ORDERED: DEXAMETHASONE SOD PHOSPHATE 4 MG/1 ML VIAL ONE (12:46)
[2021-11-01] MEDS ORDERED: ONDANSETRON 4 MG/2 ML VIAL ONE (12:46)
[2021-11-01] MEDS ORDERED: KETOROLAC TROMETHAMINE 30 MG/1 ML VIAL ONE (12:46)
[2021-11-01] MEDS ORDERED: LIDOCAINE HCL 1%, 10 MG/ML (20ML VIAL) NR ONE ×2 (12:57)
[2021-11-01] MEDS ORDERED: ONDANSETRON 4 MG/2 ML VIAL IVPUSH PRN (13:54)
[2021-11-01] MEDS ORDERED: oxyCODONE HCL 5 MG TABLET PO PRN (13:54)
[2021-11-01] MEDS ORDERED: ACETAMINOPHEN 500 MG TABLET (FP) PO ONE (13:55)
[2021-11-01] MEDS ORDERED: LACTATED RINGERS SOLUTION 1,000 ML IV SCH (14:00)
[2021-11-01] MEDS ORDERED: ACETAMINOPHEN 1000 MG/100 ML BAG IVPB ONE (14:30)
[2021-11-01 15:11] VITALS: TEMP 97.2
[2021-11-01 15:50] VITALS: BP 125/77; PULSE 72
== END 2021-11-01 15:40 | disposition home or self-care (01) ==
LOC: JASU-SURG 04:19
PROVIDERS: ATTEND Surgery
PROC: 0HBU0ZZ Excision of Left Breast, Open Approach (ICD-10-PCS; principal; 2021-11-01 12:00)
DX: D05.92 Unspecified type of carcinoma in situ of left breast (principal)
CPT/HCPCS: 19281; 76098-TC-FY; 81025; 82962; 88307-TC; 88342-TC; 94760

== ENCOUNTER 2021-11-29 04:16 | Day surgery (SDC) | payer OTHER ==
[2021-11-25 12:40] VITALS: BMI 22.6
[2021-11-29] MEDS ORDERED: LIDOCAINE HCL 1%, 10 MG/ML (20ML VIAL) ONE (14:53)
[2021-11-29] MEDS ORDERED: ceFAZolin SODIUM 1 GM VIAL IVPB ONE (16:00)
[2021-11-29] MEDS ORDERED: MIDAZOLAM HCL 2 MG/2 ML SINGLE DOSE VIAL ONE (16:04)
[2021-11-29] MEDS ORDERED: LIDOCAINE HCL 1%, 10 MG/ML (20ML VIAL) INF ONE (16:07)
[2021-11-29] MEDS ORDERED: ONDANSETRON 4 MG/2 ML VIAL IVPUSH PRN (16:43)
[2021-11-29] MEDS ORDERED: oxyCODONE HCL 5 MG TABLET PO PRN (16:43)
[2021-11-29] MEDS ORDERED: LACTATED RINGERS SOLUTION 1,000 ML IV SCH (16:45)
[2021-11-29 18:22] VITALS: BP 140/79; PULSE 77; TEMP 98
== END 2021-11-29 18:22 | disposition home or self-care (01) ==
LOC: JASU-SURG 04:16
PROVIDERS: ATTEND Surgery
PROC: 0HBU0ZZ Excision of Left Breast, Open Approach (ICD-10-PCS; principal; 2021-11-29 13:00)
DX: D05.92 Unspecified type of carcinoma in situ of left breast (principal); E11.9 Type 2 diabetes mellitus without complications; I10 Essential (primary) hypertension
CPT/HCPCS: 82962; 88307-TC; 94760

== ENCOUNTER → 2023-11-26 | Day surgery (SDC) | payer OTHER | END | disposition home or self-care (01) | LOC: FMAMMOTONE 10:24 | PROVIDERS: ATTEND Surgery | PROC: 0HBU3ZX Excision of Left Breast, Percutaneous Approach, Diagnostic (ICD-10-PCS; principal; 2023-11-26) | DX: N64.1 Fat necrosis of breast (principal); N64.89 Other specified disorders of breast; R92.8 Other abnormal and inconclusive findings on diagnostic imaging of breast | CPT/HCPCS: 19081; 76098-TC-FY; 88305-TC; 88342-TC ==